=== PATIENT | male | born 1970 ===

== ENCOUNTER 2018-02-04 21:10 | Emergency (ER) | payer BC ==
[2018-02-04 22:20] VITALS: RESP 18
[2018-02-04 23:08] LABS: BASO % 0.6 % (0.0-2.0); EOS # 0.2 K/uL (0.0-0.7); EOS % 2.9 % (0.0-4.0); HEMOGLOBIN 14.7 g/dL (12.0-18.0); LYMPH # 2.7 K/uL (1.0-4.3); LYMPH % 35.3 % (20.0-40.0); MEAN CELL VOLUME 87.9 fl (80.0-94.0); MEAN CORPUSCULAR HEMOGLOBIN 30.6 pg (27.0-31.0); MEAN CORPUSCULAR HGB CONC 34.8 g/dL (33.0-37.0); MEAN PLATELET VOLUME 7.3 fl (7.2-11.7); MONO # 0.8 K/uL (0.0-0.8); MONO % 10.9 % (0.0-10.0); NEUT # 3.9 K/uL (1.8-7.0); NEUT % 50.3 % (50.0-75.0); NRBC % 0.1 % (0.0-0.0); RBC 4.81 Mil/uL (4.40-5.90); WHITE BLOOD COUNT 7.7 K/uL (4.8-10.8)
[2018-02-04 23:17] LABS: ALB/GLOB RATIO 1.2 (1.0-2.1); ALBUMIN 4.2 g/dL (3.5-5.0); ALT/SGPT 51 U/L (21-72); AST/SGOT 38 U/L (17-59); BLOOD UREA NITROGEN 13 mg/dl (9-20); CALCIUM 9.2 mg/dL (8.4-10.2); GFR AFRICAN-AMERICAN > 60; GFR NON-AFRICAN AMERICAN > 60; LIPASE 107 U/L (23-300)
--- NOTE | 2018-02-04 23:46 | ED PDOC ---
HPI: Abdomen Time Seen by Provider: 02/04/18 22:43 Chief Complaint (Nursing): Abdominal Pain Chief Complaint (Provider): RUQ pain x 6 days History Per: Patient History/Exam Limitations: no limitations Onset/Duration Of Symptoms: Days Outside of [place] travel?: No Current Symptoms Are (Timing): Still Present Location Of Pain/Discomfort: RUQ Associated Symptoms: Diarrhea (1 episode of loose stool today ). denies: Fever , Chills, Nausea, Vomiting, Loss Of Appetite Last Bowel Movement: Today Additional Complaint(s): 48 yo male with no medical problems and GB removed 8 years ago presents with RUQ pain. 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 Pt states the pain resolved in 10 days but returned 6 days ago. Pt states pain is localized. Pt states he does not feels eating makes the pain better or worse. Pt was given antacid medication by GI but didnt take it because he did not think it was reflux. Past Medical History Reviewed: Historical Data, Nursing Documentation, Vital Signs Vital Signs: Last Vital Signs Temp 98 F 02/04/18 22:14 Pulse 72 02/04/18 22:14 Resp 18 02/04/18 22:14 BP 110/81 02/04/18 22:14 Pulse Ox 99 02/04/18 23:47 - Medical History PMH: No Chronic Diseases, Gall Bladder Disease - Surgical History Surgical History: Cholecystectomy - Family History Family History: States: No Known Family Hx - Living Arrangements Living Arrangements: With Family - Social History Current smoker - smoking cessation education provided: No - Home Medications Home Medications: Ambulatory Orders Medication Instructions Recorded Famotidine [Pepcid] 20 mg PO BID #28 tab 02/05/18 - Allergies Allergies/Adverse Reactions: Allergies Allergy/AdvReac Type Severity Reaction Status Date / Time No Known Allergies Allergy Verified 02/04/18 22:13 Review of Systems ROS Statement: Except As Marked, All Systems Reviewed And Found Negative Constitutional: Negative for: Fever, Chills Respiratory: Negative for: Cough, Shortness of Breath Gastrointestinal: Positive for: Abdominal Pain. Negative for: Nausea, Vomiting , Diarrhea Physical Exam - Reviewed Nursing Documentation Reviewed: Yes Vital Signs Reviewed: Yes - Physical Exam Appears: Positive for: Well, Non-toxic, No Acute Distress Head Exam: Positive for: ATRAUMATIC, NORMAL INSPECTION, NORMOCEPHALIC Skin: Positive for: Normal Color, Warm, DRY Eye Exam: Positive for: Normal appearance ENT: Positive for: Normal ENT Inspection Neck: Positive for: Normal, Painless ROM Cardiovascular/Chest: Positive for: Regular Rate, Rhythm Respiratory: Positive for: CNT, Normal Breath Sounds Gastrointestinal/Abdominal: Positive for: Normal Exam, Bowel Sounds, Soft. Negative for: Tenderness Back: Positive for: Normal Inspection Extremity: Positive for: Normal ROM Neurologic/Psych: Positive for: Alert, Oriented - Laboratory Results Result Diagrams: 02/04/18 23:00 02/04/18 23:00 - ECG O2 Sat by Pulse Oximetry: 99 Pulse Ox Interpretation: Normal Medical Decision Making Medical Decision Making: Labs normal. Abdominal CT normal. Discussed F.u with GI. Disposition - Clinical Impression Clinical Impression: Abdominal pain - Patient ED Disposition Is Patient to be Admitted: No Counseled Patient/Family Regarding: Diagnosis, Need For Followup, Rx Given - Disposition Referrals: Fadi Hoffman MD [Staff Provider] - Disposition: Routine/Home Disposition Time: 01:43 Condition: GOOD Prescriptions: Famotidine [Pepcid] 20 mg PO BID #28 tab Instructions: Acute Abdomen (Belly Pain) Forms: [facility] (Greenlandic)
[2018-02-04] MEDS ORDERED: Alum-Mag Hydrox-Simethicone Susp (30 mL) PO STA (23:47)
[2018-02-04] MEDS ORDERED: Iohexol 300 100 ML IJ ONE (23:51)
[2018-02-04] MEDS ORDERED: Sodium Chloride 0.9% 50 ML IV ONE (23:52)
[2018-02-04] MEDS ORDERED: Alum-Mag Hydrox-Simethicone Susp (30 mL) ONE (23:56)
[2018-02-05 02:29] VITALS: BP 115/76; PULSE 78; TEMP 98.1; O2SAT 98
--- NOTE | 2018-02-05 14:11 | CT ---
Date of service: 02/04/2018 PROCEDURE: CT Abdomen and Pelvis with contrast HISTORY: ruq pain COMPARISON: None. TECHNIQUE: Contrast dose: 90 cc Omnipaque 300 Radiation dose: Total exam DLP = 666.63 mGy-cm. This CT exam was performed using one or more of the following dose reduction techniques: Automated exposure control, adjustment of the mA and/or kV according to patient size, and/or use of iterative reconstruction technique. FINDINGS: LOWER THORAX: Unremarkable. LIVER: Unremarkable. No gross lesion or ductal dilatation. GALLBLADDER AND BILE DUCTS: Unremarkable. PANCREAS: Unremarkable. No gross lesion or ductal dilatation. SPLEEN: Unremarkable. ADRENALS: Unremarkable. No mass. KIDNEYS AND URETERS: Unremarkable. No hydronephrosis. No solid mass. VASCULATURE: Unremarkable. No aortic aneurysm. BOWEL: Unremarkable. No obstruction. No gross mural thickening. APPENDIX: Normal appendix. PERITONEUM: Unremarkable. No free fluid. No free air. LYMPH NODES: Unremarkable. No enlarged lymph nodes. BLADDER: Unremarkable. REPRODUCTIVE: Unremarkable. BONES: No acute fracture. OTHER FINDINGS: None. IMPRESSION: Unremarkable contrast enhanced CT of the abdomen and pelvis. Concordant results (preliminary interpretation) provided by [employer]. Procedure Completed: 00:27 Preliminary ([facility]) Report: Dictated and Authenticated: 00:56 Final Interpretation: 20:19 February 05, 2018.
== END 2018-02-05 02:30 | disposition home or self-care (01) ==
LOC: H.ER 21:10
DX: R10.11 Right upper quadrant pain (principal)
CPT/HCPCS: 74177; 80053; 83690; 85025; 99283; Q9967